=== PATIENT | female | born 1945 | race Caucasian/White ===

== ENCOUNTER 2018-07-17 11:07 | Outpatient (CLI) | payer OTHER | END 2018-07-17 11:10 | disposition home or self-care (01) | LOC: SONOGRAMA 11:07 → MAMO-SONO 11:15 | DX: M71.311 Other bursal cyst, right shoulder (principal); R22.31 Localized swelling, mass and lump, right upper limb ==

== ENCOUNTER 2018-07-28 07:32 | Outpatient (CLI) | payer OTHER | END 2018-07-28 07:36 | disposition home or self-care (01) | LOC: TOM 07:32 | DX: R10.31 Right lower quadrant pain (principal); R10.32 Left lower quadrant pain; R63.4 Abnormal weight loss; J06.9 Acute upper respiratory infection, unspecified; R05 Cough | CPT/HCPCS: 71046; 74178; Q9965 ==

== ENCOUNTER 2018-08-11 07:41 | Outpatient (CLI) | payer OTHER | END 2018-08-11 07:47 | disposition home or self-care (01) | LOC: RX STUDY 07:41 | DX: E61.1 Iron deficiency (principal) ==

== ENCOUNTER 2018-09-28 09:48 | Outpatient (CLI) | payer OTHER ==
[2018-09-29] MEDS ORDERED: JANUMET XR 50-1 EAC1 PO (07:37)
[2018-09-29] MEDS ORDERED: COZAAR100 MG PO (07:38)
[2018-09-29] MEDS ORDERED: AMARLY PO (07:38)
[2018-09-29] MEDS ORDERED: LANTUS (07:48)
[2018-09-29] MEDS ORDERED: METROPOLOL PO (07:49)
== END 2018-09-28 14:05 | disposition home or self-care (01) ==
LOC: EKG 09:48
DX: D21.11 Benign neoplasm of connective and other soft tissue of right upper limb, including shoulder (principal); I10 Essential (primary) hypertension; Z01.812 Encounter for preprocedural laboratory examination

== ENCOUNTER 2018-10-01 06:00 | Day surgery (SDC) | payer OTHER ==
[~2018-10-01 06:00] MED LIST: AMARLY PO; COZAAR100 MG PO; JANUMET XR 50-1 EAC1 PO; LANTUS; METROPOLOL PO
== END 2018-10-01 13:45 | disposition home or self-care (01) ==
LOC: CIR.AMB 06:00
DX: D17.21 Benign lipomatous neoplasm of skin and subcutaneous tissue of right arm (principal)

== ENCOUNTER 2019-07-26 15:14 | Outpatient (CLI) | payer OTHER | END 2019-07-26 15:23 | disposition home or self-care (01) | LOC: MAMO-SONO 15:14 | DX: Z12.31 Encounter for screening mammogram for malignant neoplasm of breast (principal); Z87.898 Personal history of other specified conditions; N64.89 Other specified disorders of breast ==

== ENCOUNTER → 2021-03-28 | Outpatient (CLI) | payer OTHER | END | disposition home or self-care (01) | LOC: MAMO-SONO 03-27 08:45 | PROVIDERS: ATTEND Obstetrics & Gynecology | DX: N60.19 Diffuse cystic mastopathy of unspecified breast (principal); Z12.31 Encounter for screening mammogram for malignant neoplasm of breast ==

== ENCOUNTER 2022-10-07 08:03 | Outpatient (CLI) | payer OTHER | END 2022-10-07 08:11 | disposition home or self-care (01) | LOC: MAMO-SONO 08:03 | PROVIDERS: ATTEND Obstetrics & Gynecology | DX: Z12.31 Encounter for screening mammogram for malignant neoplasm of breast (principal); M85.00 Fibrous dysplasia (monostotic), unspecified site ==

== ENCOUNTER 2024-03-04 09:00 | Inpatient (IN) | payer OTHER ==
[~2024-03-04] VITALS: Ht 167.6 cm; Wt 61.2 kg
[~2024-03-04 09:00] MED LIST changes: +HUMALOG; -LANTUS
[2024-03-04 11:32] LABS: RH POSITIVE
[2024-03-08] MEDS ORDERED: TRANEXAMIC ACID 100MG/1ML (1000MG) AMPUL IV ONE ×2 (12:15)
[2024-03-08] MEDS ORDERED: KETOROLAC TROMETHAMINE 60 MG VIAL IM ONE (12:15)
[2024-03-08] MEDS ORDERED: CEFAZOLIN SODIUM 1,000 MG VIAL IV ONE (12:15)
[2024-03-08] MEDS ORDERED: BUPIVACAINE HCL 30 ML VIAL IJ ONE (12:15)
[2024-03-08] MEDS ORDERED: POLYMYXIN B SULFATE 500,000 U VIAL IR ONE (12:15)
[2024-03-08] MEDS ORDERED: CEFAZOLIN SODIUM 1,000 MG VIAL IV SCH (14:10)
[2024-03-08] MEDS ORDERED: MORPHINE SULFATE 4 MG/ML CARTRIDGE IV PRN (14:15)
[2024-03-08] MEDS ORDERED: MORPHINE SULFATE 2 MG/ML CARTRIDGE IV ONE (14:15)
[2024-03-08] MEDS ORDERED: SODIUM CHLORIDE 0.45 % 1,000 ML IV SCH (14:15)
[2024-03-08] MEDS ORDERED: ONDANSETRON HCL 2 MG/ML VIAL IV PRN (14:15)
[2024-03-08] MEDS ORDERED: AMLODIPINE BESYL5 MG (15:47)
[2024-03-08] MEDS ORDERED: HUMALOG KW100 UNIT/1 (15:48)
[2024-03-08] MEDS ORDERED: METOPROLOL SUCC50 MG (15:48)
[2024-03-08] MEDS ORDERED: GLIMEPIRIDE4 M1 (15:49)
[2024-03-08] MEDS ORDERED: LIDOCAINE HCL 1%/EPINEPHRINE 20ML VIAL IJ ONE (16:00)
[2024-03-08 17:29] LABS: HEMATOCRIT 32.8 % (36.0-45.00); HEMOGLOBIN 10.7 g/dL (12.0-15.00); RED BLOOD COUNT 3.73 M/uL (4.00-6.00)
[2024-03-08] MEDS ORDERED: ENALAPRILAT DIHYDRATE 1.25 MG/ML VIAL IV ONE ×2 (17:50→18:20)
[2024-03-08] MEDS ORDERED: hydrALAZINE HCL 20 MG VIAL IV ONE (19:00)
[2024-03-08 21:45] VITALS: BP 124/60; O2SAT 98
[2024-03-09 00:44] VITALS: BP 108/55; O2SAT 97
[2024-03-09 06:15] LABS: HEMATOCRIT 30.1 % (36.0-45.00); MEAN CELL VOLUME 86.9 fL (80.00-100.00); MEAN CORPUSCULAR HGB CONC 33.4 g/dl (32.0-36.0); PLATELET COUNT 215 K/uL (150-450); RED BLOOD COUNT 3.46 M/uL (4.00-6.00); RED CELL DISTRIBUTION WIDTH 14.2 % (11.5-14.5)
[2024-03-09] MEDS ORDERED: ACETAMINOPHEN WITH CODEINE 1 UDTAB TABLET PO PRN (08:00)
[2024-03-09 08:11] VITALS: BP 115/56; O2SAT 98
[2024-03-09] MEDS ORDERED: CELECOXIB 200 MG CAPSULE PO SCH (09:00)
[2024-03-09] MEDS ORDERED: IRON FUM,PS/FOLIC/BCOMP,C NO.9 1 CAP CAPSULE PO SCH (09:00)
[2024-03-09] MEDS ORDERED: LOSARTAN POTASSIUM 100 MG TABLET PO SCH (09:00)
[2024-03-09] MEDS ORDERED: GLIMEPIRIDE 4 MG TABLET PO SCH (09:00)
[2024-03-09] MEDS ORDERED: SENNA/DOCUSATE SODIUM 1 TAB TABLET PO SCH (09:00)
[2024-03-09] MEDS ORDERED: RIVAROXABAN 10 MG TAB PO SCH (09:00)
[2024-03-09] MEDS ORDERED: METOPROLOL TARTRATE 25 MG TABLET PO SCH (09:00)
[2024-03-09] MEDS ORDERED: BACITRACIN 28.35 GM OINT.TUBE TOP SCH (09:00)
[2024-03-09 16:21] VITALS: BP 129/57; O2SAT 98
[2024-03-09] MEDS ORDERED: DEXTROSE 50 % IN WATER 0.5 G/ML DISP.SYRIN IV PRN (18:45)
[2024-03-09] MEDS ORDERED: INSULIN LISPRO 1,000 UNIT/10 ML UNITS SUBCUTANEO PRN (18:45)
[2024-03-10] VITALS: BP 121/60; O2SAT 95
[2024-03-10] MEDS ORDERED: Septra Ds Tablet PO (06:36)
[2024-03-10] MEDS ORDERED: INTEGRA PLUS C1 EACH PO (06:37)
[2024-03-10] MEDS ORDERED: ACETAMINOPHEN-1 EAC2 PO (06:37)
[2024-03-10] MEDS ORDERED: XARELTO10 MG PO (06:37)
[2024-03-10 07:16] LABS: HEMATOCRIT 28.8 % (36.0-45.00); HEMOGLOBIN 9.7 g/dL (12.0-15.00); MEAN CORPUSCULAR HEMOGLOBIN 29.1 pg (27.00-32.0); MEAN CORPUSCULAR HGB CONC 33.8 g/dl (32.0-36.0); PLATELET COUNT 222 K/uL (150-450); RED BLOOD COUNT 3.35 M/uL (4.00-6.00); RED CELL DISTRIBUTION WIDTH 14.7 % (11.5-14.5)
[2024-03-10] MEDS ORDERED: SULFAMETHOXAZOLE/TRIMETHOPRIM DS 1 TAB PO SCH (09:00)
[2024-03-10 10:00] VITALS: BP 145/75; O2SAT 95
== END 2024-03-10 13:38 | DRG 470 ==
LOC: SURH 03-08 06:15 → O/R 03-08 06:15 → SURG 03-08 09:00 → SURH 03-08 16:26 → SURG 03-08 16:30 → SURH 03-10 13:38
PROVIDERS: ADMIT Orthopaedic Surgery Sports Medicine; ATTEND Orthopaedic Surgery Sports Medicine
PROC: 0SRC0J9 Replacement of Right Knee Joint with Synthetic Substitute, Cemented, Open Approach (ICD-10-PCS; principal; 2024-03-08 16:30)
DX: M17.11 Unilateral primary osteoarthritis, right knee (principal); I10 Essential (primary) hypertension; E11.9 Type 2 diabetes mellitus without complications; Z79.84 Long term (current) use of oral hypoglycemic drugs; Z79.4 Long term (current) use of insulin